=== PATIENT | female | born 1980 | race African-American/Black ===

== ENCOUNTER 2018-03-10 20:53 | Emergency (ER) | payer OTHER ==
[2018-03-10] MEDS ORDERED: IPRATROPIUM/ALBUTEROL 0.5-2.5 MG/3 ML AMPUL NEB ONE ×2 (21:11→23:04)
[2018-03-10] MEDS ORDERED: PREDNISONE 20 MG TABLET PO ONE (21:15)
--- NOTE | 2018-03-10 21:22 | ER Document Report ---
ED Respiratory Problem - General Chief Complaint: Shortness Of Breath Stated Complaint: SHORTNESS OF BREATH Time Seen by Provider: 03/10/18 21:03 Information source: Patient Notes: Patient is a 37-year-old female presenting to the emergency department complaining of shortness of breath and chest tightness for the last 2 days. Patient states shortness of breath has increased prompted her visit to the emergency department. Patient also complains of URI symptoms. Patient denies fever, chills, sweats, nausea, vomiting, diarrhea. Patient does have a past medical history of asthma states she ran out of her albuterol inhaler 3 months ago. Patient denies any intubations in the past, has never been on BiPAP. Patient denies smoking, denies illicit drug use, states casual alcohol use. Patient states she is new to the area does not have a PMD. Last menstrual period 02/18/2018. TRAVEL OUTSIDE OF THE [place] IN LAST 30 DAYS: No - Related Data Allergies/Adverse Reactions: No Known Allergies Allergy (Verified 03/10/18 21:28) Past Medical History - General Information source: Patient - Social History Smoking Status: Never Smoker Lives with: Family Family History: Reviewed & Not Pertinent Review of Systems - Review of Systems Constitutional: See HPI EENT: See HPI Cardiovascular: See HPI Respiratory: See HPI Gastrointestinal: No symptoms reported Genitourinary: No symptoms reported Female Genitourinary: No symptoms reported Musculoskeletal: No symptoms reported Skin: No symptoms reported Hematologic/Lymphatic: No symptoms reported Neurological/Psychological: No symptoms reported Physical Exam - Vital signs Vitals: Temp Pulse Resp BP Pulse Ox 99.6 F 108 H 18 150/91 H 98 03/10/18 20:59 03/10/18 20:59 03/10/18 20:59 03/10/18 20:59 03/10/18 20:59 - Notes Notes: GENERAL: Alert, interacts well. No acute respiratory distress. Speaking in full sentences. HEAD: Normocephalic, atraumatic. EYES: Pupils equal, round, and reactive to light. Extraocular movements intact. ENT: Oral mucosa moist, tongue midline. NECK: Full range of motion. Supple. Trachea midline. LUNGS: Slight inspiratory wheeze in all [place], prolonged expiratory phase with wheezing in all marina.. HEART: Tachycardic rate and rhythm. No murmur ABDOMEN: Soft, non-tender. Non-distended. Bowel sounds present in all 4 quadrants. EXTREMITIES: Moves all 4 extremities spontaneously. No edema, normal radial and dorsalis pedis pulses bilaterally. No cyanosis. BACK: no cervical, thoracic, lumbar midline tenderness. No saddle anesthesia, normal distal neurovascular exam. NEUROLOGICAL: Alert and oriented x3. Normal speech. [cranial nerves II through XII grossly intact]. PSYCH: Normal affect, normal mood. SKIN: Warm, dry, normal turgor. No rashes or lesions noted. Course - Re-evaluation Re-evalutation: Upon re-eval patient states her respiratory distress and chest tightness has improved substantially. Patient has minor end expiratory wheeze bilateral lower lobes, otherwise clear lung sounds. One more DuoNeb will be administered. Post DuoNeb treatment patient states she feels "100% better". Patient requesting discharge. Upon reevaluation lung sounds clear in all marina, patient continues without tachypnea, speaking in full sentences. Talked to patient about need for primary care follow-up, and pulmonology follow-up. Numbers will be given. - Vital Signs Vital signs: Temp Pulse Resp BP Pulse Ox 99.2 F 108 H 19 122/70 97 03/10/18 23:42 03/10/18 20:59 03/10/18 23:38 03/10/18 23:38 03/10/18 23:38 Discharge - Discharge Clinical Impression: Asthma Qualifiers: Asthma severity: mild Asthma persistence: unspecified Asthma complication type : with acute exacerbation Qualified Code(s): J45.901 - Unspecified asthma with ( acute) exacerbation Condition: Stable Disposition: HOME, SELF-CARE Additional Instructions: Asthma You have been diagnosed as having asthma. This is a condition where there is episodic tightness in the bronchial tubes. Allergies, infections, and polluted or cold air may be contributing factors. Emergency treatment of a severe asthma attack may include adrenaline shots , or bronchodilator aerosol. You may feel lightheaded, have a decreased exercise tolerance and a rapid pulse for an hour or two. Rest and get plenty of fluids. Home treatment of asthma requires bronchodilator drugs. These can be administered by injection, inhalation, or by mouth. Antibiotics and corticosteroids may be required for some patients. You should avoid chemical fumes, dusts, pollens, and exercising in very cold or dry air. If you smoke, stop!! If you develop a fever, increased wheezing, chest pain, or severe shortness of breath, you should contact the doctor immediately Prescriptions: Albuterol Sulfate [Proair HFA Inhalation Aerosol 8.5 gm MDI] 2 puff IH Q4H PRN # 1 mdi PRN Reason: Prednisone [Deltasone 20 mg Tablet] 3 tab PO DAILY 5 Days tablet Referrals: MARYAN MEREDITH MD [ACTIVE STAFF] - Follow up as needed CELESTINA MCNAMARA MD [ACTIVE STAFF] - Follow up as needed
--- NOTE | 2018-03-10 22:07 | RADIOLOGY REPORT (SQ) ---
XR CHEST 2 VIEWS HISTORY: Shortness of breath. COMPARISON: None. FINDINGS/IMPRESSION: Normal cardiomediastinal contours. Lungs are clear. No pleural effusion or pneumothorax is seen. No acute osseous findings.
[2018-03-10] MEDS ORDERED: ALBUTEROL SULFATE HFA (90 MCG/PUFF) 8 GM MDI (1 MDI/ER DISP) IH ONE (23:04)
[2018-03-10 23:40] VITALS: BP 122/70
== END 2018-03-10 23:45 | disposition home or self-care (01) ==
LOC: ER 20:53
DX: J45.901 Unspecified asthma with (acute) exacerbation (principal); R06.02 Shortness of breath; R07.9 Chest pain, unspecified
CPT/HCPCS: 94640 ×2; 99285; 71046; J7512; J3490; J7620